=== PATIENT | male | born 1935 | race Caucasian/White ===

== ENCOUNTER 2017-08-09 12:05 | Inpatient (IN) | payer MEDICARE ==
[~2017-08-09] VITALS: Ht 180.3 cm; Wt 92.1 kg
--- NOTE | 2017-08-09 12:11 | NUR ---
81 YO MALE BB RA FROM HOME, PATIENT STATES HE WAS USING THE RESTROOM, WHEN HE HAD AN EPISODE OF LIGHHEADED, LEFT SIDED NUMBNESS AND VISION LOSS. PATIENT DS TO ER BED, SKIN WARM AND DRY, RESP EVEN AND UNLABORED. PATIENT WAS GOWNED,PLACED ON BAND MANAGER. PATIENT IS MOVING ALL EXTREMITIES FREELY, PMS ALL EXTREMITIES WNL, NO FACIAL DROOP NOTED AT THIS TIME. AWAITING ORDERS FROM PROVIDER, WILL CONITNUE TO MONITOR
[2017-08-09 12:29] LABS: BASOPHILS % (AUTO) 0.4 % (0.0-2.0); EOSINOPHILS % (AUTO) 3.8 % (0.0-6.0); HEMATOCRIT 37 % (39-51); HEMOGLOBIN 12.8 g/dL (13.5-17.5); LYMPHOCYTES # (AUTO) 1.7 /CMM (0.8-4.8); LYMPHOCYTES % (AUTO) 28.9 % (20.0-44.0); MEAN CORPUSCULAR HGB CONC 35 g/dl (31.0-36.0); MEAN CORPUSCULAR VOLUME 93 fL (80-96); MONOCYTES # (AUTO) 0.5 /CMM (0.1-1.30); NEUTROPHILS # (AUTO) 3.6 /CMM (1.8-8.9); NEUTROPHILS % (AUTO) 57.9 % (43.0-81.0); PLATELET COUNT (AUTO) 248 /CMM (150-450); RDW COEFFICIENT OF VARIATION 13.8 (11.5-15.0); RED BLOOD CELL COUNT(AUTO) 3.93 MIL/uL (4.5-6.0)
[2017-08-09 12:38] LABS: CALCIUM, SERUM 9.4 mg/dL (8.5-10.1); CARBON DIOXIDE 25 mmol/L (21-32); CHLORIDE 103 mmol/L (98-107); CREATININE 1.8 mg/dL (0.6-1.3); GLUCOSE 153 mg/dL (74-106); POTASSIUM 4.6 mmol/L (3.5-5.1); SODIUM SERUM 137 mmol/L (136-145); UREA NITROGEN, BLOOD 35 mg/dL (7-18)
[2017-08-09 12:42] LABS: INR 1.01 (0.85-1.15)
[2017-08-09 12:47] LABS: TROPONIN I < 0.017 ng/mL (0.00-0.056)
[2017-08-09] MEDS ORDERED: IOHEXOL-350 100 ML VIAL IV ONE (12:50)
[2017-08-09 13:02] LABS: CHOLESTEROL 134 mg/dL (<200); HDL CHOLESTEROL 122 mg/dL (40-60); LDL 81 mg/dL (0-99); TRIGLYCERIDES 272 mg/dL (30-150)
[2017-08-09] MEDS ORDERED: IV NS 0.9% 1,000 ML BAG IV ONE ×2 (13:30)
[2017-08-09] MEDS ORDERED: LOSA50TA21 PO (13:46)
[2017-08-09] MEDS ORDERED: GABA-534 PO (13:46)
[2017-08-09] MEDS ORDERED: METO-356 PO (13:46)
[2017-08-09] MEDS ORDERED: PANT40TA4 PO (13:46)
[2017-08-09] MEDS ORDERED: AMLO2.5T3 PO (13:46)
[2017-08-09] MEDS ORDERED: ALLO100T PO (13:46)
[2017-08-09] MEDS ORDERED: ASPIRIN 81 MG TAB.CHEW PO ONE ×2 (14:00→19:30)
--- NOTE | 2017-08-09 14:00 | NUR ---
PAGED EPIC FOR PANEL
--- NOTE | 2017-08-09 14:04 | NUR ---
report was given to maru VICTOR for jamir
--- NOTE | 2017-08-09 14:16 | NUR ---
PT TRANSFERRED TO [facility] IN STABLE CONDITION
--- NOTE | 2017-08-09 14:37 | NUR ---
SUPERVISOR TUNNEL HEADING NOTES RECEIVED PATIENT A/OX4 DENIES SOB, DIFFICULTY BREATHING OR PAIN. PATIENT AMBULATORY WITHOUT ASSISTANCE TO BED. PATIENT STATES HIS SYMPTOMS HE WAS PREVIOUSLY HAVING HAVE RESOLVED. LEFT SIDE OF FACE SLIGHTLY WEAK PER PATIENT THIS IS RESIDUAL FROM BELLS PALSY. PATIENT STATES NO COMPLICATIONS WITH VISION AT THIS TIME. SAFETY PRECAUTIONS IN PLACE. BED LOWERED AND LOCKED, RAILS UPX3 FOR SAFETY AND BED ALARM ON. DAUGHTER AT BEDSIDE. DR RASMUSSEN AWARE OF ADMISSION. TELE NSR 63
--- NOTE | 2017-08-09 14:40 | NUR ---
EVICTION SPECIALIST NOTES PATIENT EXTREMITIES WNL STRENGTH. BLE WITH DIABETIC NEUROPATHY LEFT GREATER THAN RIGHT ABLE TO FEEL TOUCH. PATIENT PULSES PRESENT ALL EXTREMITIES.
--- NOTE | 2017-08-09 14:45 | NUR ---
MUSHROOM FARMER NOTES STROKE PROTOCOL INITIATED AND FOLLOWED. PATIENT STABLE.
[2017-08-09] MEDS ORDERED: ASPIRIN 81 MG TAB.CHEW ONE (14:48)
[2017-08-09 14:53] VITALS: BP 144/83
[2017-08-09] MEDS: PANTOPRAZOLE 40 MG TABLET.DR PO SCH (15:00)
[2017-08-09] MEDS: ASPIRIN EC 325 MG TABLET.DR PO SCH (15:00)
[2017-08-09] MEDS ORDERED: ENALAPRILAT INJ (1.25 MG/ML) 1.25 MG/ML VIAL IV PRN (15:00)
[2017-08-09] MEDS ORDERED: DEXTROSE 50%-WATER 50 ML DISP.SYRIN IV PRN (15:00)
[2017-08-09] MEDS ORDERED: BLOOD SUGAR DIAGNOSTIC 1 EACH STRIP IN SCH (15:00)
--- NOTE | 2017-08-09 15:15 | NUR ---
FAMILY PRACTITIONER NOTES ASA 162 MG GIVEN BY JOSE VICTOR FROM ER. PER DR RASMUSSEN DO NOT GIVE 325MG ECOTRIN NOW; RESUME TOMORROW AM SCHEDULED.
[2017-08-09 15:24] LABS: THYROID STIMULATING HORMONE 1.655 uIU/mL (0.358-3.74)
[2017-08-09 15:25] LABS: ALBUMIN 3.7 g/dL (3.4-5.0); BILIRUBIN,DIRECT 0.1 mg/dL (0.0-0.2); BILIRUBIN,TOTAL 0.8 mg/dL (0.2-1.0); TOTAL PROTEIN, SERUM 7.9 g/dL (6.4-8.2)
--- NOTE | 2017-08-09 15:30 | NUR ---
AGENT PRODUCER NOTES PATIENT STATES HE IS A DNR/DNI PER MD OK TO ORDER CODE STATUS.
--- NOTE | 2017-08-09 15:33 | NUR ---
DIRECTOR OF RESTAURANTS NOTES DR RASMUSSEN AT BEDSIDE. PER MD ORDER MRI BRAIN WITHOUT AND MRA STAT
--- NOTE | 2017-08-09 15:39 | NUR ---
PCU RN NOTES CONFIRMED WITH RADIOLOGY MRI WILL BE DONE. PER MD ORDER DIABETIC DIET FOR PATIENT. NO SWALLOWING DIFFICULTIES
--- NOTE | 2017-08-09 15:44 | NUR ---
VEGETABLE WASHER NOTES PATIENT BEING TAKEN FOR MRI IN STABLE CONDITION BY WHEELCHAIR
[2017-08-09 16:00] VITALS: BP 144/83
--- NOTE | 2017-08-09 16:45 | NUR ---
ENVIRONMENTAL RESTORATION PLANNER NOTES PATIENT RETURNED FROM MRI STABLE. RAIL TRANSIT OPERATOR AT BEDSIDE
--- NOTE | 2017-08-09 16:50 | NUR ---
ORAL THERAPIST NOTES CAROTID BEING COMPLETED
[2017-08-09] MEDS ORDERED: GABAPENTIN 300 MG CAPSULE PO SCH (17:00)
--- NOTE | 2017-08-09 17:15 | NUR ---
COLD PATCHER NOTES DR POZO AT BEDSIDE
--- NOTE | 2017-08-09 18:00 | NUR ---
DECK MOLDER NOTES PATIENT STATES HE DOES NOT TAKE INSULIN
[2017-08-09] MEDS: BLOOD SUGAR DIAGNOSTIC 1 EACH STRIP IN SCH ×2 (18:22→22:04)
--- NOTE | 2017-08-09 18:32 | NUR ---
MANAGEMENT ARCHITECT NOTES PATIENT APPEARS STABLE. UPDATED ON CARE PLAN. EATING DINNER. PENDING MRI/MRA RESULTS. PATIENT NEEDS IN REACH. NO DEFICITS NOTED. AT BEDSIDE. NSR. PATIENT AWARE NEEDING URINE SAMPLE BUT HAS NOT URINATED YET. CARE WILL BE ENDORSED TO RN FOR JULIO
--- NOTE | 2017-08-09 18:49 | NUR ---
SR. DIRECTOR NOTES URINE SAMPLE COLLECTED
--- NOTE | 2017-08-09 18:55 | NUR ---
THIRD SHIFT LIEUTENANT NOTES NOTIFIED DR RASMUSSEN OF MRA RESULTS. NO NEW ORDERS. NOTIFIED PATIENT C/O GENERAL PAIN. PER OK TO ORDER TYLENOL ES PO 500MG Q6H PRN FOR PAIN
[2017-08-09] MEDS ORDERED: AMLODIPINE BESYLATE 2.5 MG TABLET PO SCH (19:00)
[2017-08-09] MEDS ORDERED: LOSARTAN POTASSIUM 50 MG TABLET PO SCH (19:00)
--- NOTE | 2017-08-09 19:06 | NUR ---
B2B SALES REPRESENTATIVE NOTES PER DR RASMUSSEN GIVE THE ORDERED BLOOD PRESSURE MEDICATIONS NOW. GIVE ANOTHER 162 MG ASPIRIN PO NOW. ORDER IVP HYDRALAZINE 20MG Q6H PRN FOR SBP OVER 130. AND CALL DR HOWARD ONCE MRI/MRA RESULTS ARE POSTED FOR ORDERS SHE IS EXPECTING A CALL
--- NOTE | 2017-08-09 19:07 | NUR ---
BASIN OPERATOR NOTES CARE ENDORSED TO RN FOR JULIO.
[2017-08-09 20:00] VITALS: BP 164/75
[2017-08-09 20:36] LABS: APPEARANCE,URINE SL CLOUDY (CLEAR); BILIRUBIN,URINE NEGATIVE (NEGATIVE); BLOOD, URINE NEGATIVE Ery/uL (NEGATIVE); COLOR,URINE YELLOW (YELLOW); KETONES,URINE NEGATIVE (NEGATIVE); LEUKOCYTE ESTERASE ,URINE NEGATIVE (NEGATIVE); NITRITE, URINE NEGATIVE (NEGATIVE); PROTEIN,URINE 1+ mg/dl (NEGATIVE); UGLUCOSE NEGATIVE (NEGATIVE); UROBILINOGEN,URINE 0.2 EU/dL (0.2)
[2017-08-09 20:51] LABS: BACTERIA,URINE None seen /HPF (None Seen); RBC,URINE 0-2 /HPF (0-2); SQUAMOUS EPITHELIAL CELL,UR Rare /HPF (None Seen); WBC,URINE 0-2 /HPF (0-3)
[2017-08-09] MEDS: GABAPENTIN 300 MG CAPSULE PO SCH (20:56)
[2017-08-09] MEDS: METOPROLOL SUCCINATE 25 MG TAB.SR.24H PO SCH (20:59)
--- NOTE | 2017-08-09 22:00 | NUR ---
SHEEP OR CALF GRADER - REC'D PT. IN RM#[id number] W/FAMILY AT BS. PT.IS ADMITTED FOR TIA, HX OF ANGELES'S PALSY W/LEFT EYE DROOP. STRONG BILAT.ADVERTISING REP & PEDAL PUSHES BILAT. SPEECH CLEAR. INITIAL B/P AT [facility] WAS 164/75. PT. WAS ADM. SEVERAL B'P MEDS AT 2100. PT. CLAIMS TO HAVE A HOOK (LEVEL 5). PT. WAS ADM. ASA W/21:[address] HOWARD PHONED AT 21:10 W/ MRI RESULTS. LEFT MESSAGE TO PHONE BACK. DID PHONE BACK AT 22:00-NO ORDERS REC'D YET. ORDERS TO PHONE DR. RASMUSSEN IF ANY NEURO OR PHYSICAL CHANGES OCCUR. PT.IS ON R/A, AFEBRILE, RAC-PIV IS HL'D W/2 PORTS PATENT TO FLUSH. SKIN INTACT. NO EDEMA. NO S/S OF DISTRESS/DISCOMFORT. CONT.POC.
[2017-08-09] MEDS: INSULIN REGULAR, HUMAN 100 UNIT/ML 3 ML VIAL SQ PRN (22:03)
[2017-08-09] MEDS: SIMVASTATIN 20 MG TABLET PO SCH (22:04)
[2017-08-09] MEDS: ACETAMINOPHEN ES 500 MG TABLET PO PRN (23:55)
[2017-08-09] MEDS: hydrALAZINE HCL IV 20 MG VIAL IV PRN (23:56)
[2017-08-10] VITALS (27 sets, daily range): BP systolic 114–164; BP diastolic 53–87
[2017-08-10] MEDS: BLOOD SUGAR DIAGNOSTIC 1 EACH STRIP IN SCH ×4 (06:00→23:30)
--- NOTE | 2017-08-10 06:50 | NUR ---
UTILIZATION REVIEW COORDINATOR - PT. SLEPT INTERMITTENTLY LAST NIGHT. BUT LIKE HIS ER ADM. PT.IS EXPERIENCING BLURRED VISION-MORE IN THE LEFT SIDE, THAN RT. ENDORSED TO DAYSHIFT RNIRWIN. NOTED. NO OTHER DEFICIT NOTED. PT. LAU'S WELL, TONGUE SYMMETRICAL, PT'S SMILE HAS SOME DROOP TO RT. SIDE MORE THAN LEFT SIDE/ LEFT EYE DROOP IS THE SAME INITIAL ASSESSMENT. PT.DOES HAVE HX OF ANGELES'S PALSY. AM BS AT #174. PT. COVERED W/REG. INSULIN/3U/SQ/LEFT DELTOID. PT. STILL HAS HOOK. 4AM B/P WAS 131/59. PT. WAS ADM. HYDRALAZINE 20MG/SLOW IVP AT [place]. PRN MED. A&OX 4. AFEBRILE. PT. IS REQUESTING BED BATH AFTER BREAKFAST. AM LABS PENDING. CONT. POC.
--- NOTE | 2017-08-10 07:40 | NUR ---
RN NOTES RECEIVED PATIENT ALERT AND ORIENTED X4. HE IS ABLE TO MAKE THINGS KNOWN. BREATHING EVEN AND UNLABORED WITH NO SOB OR DISTRESS NOTED. ON CARDIAC MONITORING SINUS RHYTHM HR OF 77. PATIENT IS AMBULATORY WITH ASSIST. PATIENT STATED HE WAS HAVING BLURRY VISION. LEFT SIDE OF FACE SLIGHTLY WEAK PER PATIENT STATED HE HAS HX OF BELLS PALSY. SEEN BY MD DR RASMUSSEN HE STATED TO MONITOR PATIENT SBP AND MAINTAIN SBP <120. SAFETY PRECAUTIONS IN PLACE. BED LOW, LOCKED, PLACED CALL LIGHT WITH IN REACH. AND DAUGHTER AT BEDSIDE. WILL CONTINUE TO MONITOR CONTINUITY OF CARE.
[2017-08-10 07:43] LABS: BASOPHILS % (AUTO) 0.2 % (0.0-2.0); EOSINOPHILS % (AUTO) 2.8 % (0.0-6.0); HEMATOCRIT 32 % (39-51); HEMOGLOBIN 11.4 g/dL (13.5-17.5); LYMPHOCYTES # (AUTO) 1.9 /CMM (0.8-4.8); LYMPHOCYTES % (AUTO) 27.9 % (20.0-44.0); MEAN CORPUSCULAR HGB CONC 35 g/dl (31.0-36.0); MEAN CORPUSCULAR VOLUME 94 fL (80-96); MONOCYTES # (AUTO) 0.7 /CMM (0.1-1.30); MONOCYTES % (AUTO) 9.9 % (2.0-12.0); NEUTROPHILS % (AUTO) 59.2 % (43.0-81.0); PLATELET COUNT (AUTO) 226 /CMM (150-450); RDW COEFFICIENT OF VARIATION 14.6 (11.5-15.0); RED BLOOD CELL COUNT(AUTO) 3.44 MIL/uL (4.5-6.0); WHITE BLOOD COUNT (AUTO) 6.8 K/uL (4.3-11.0)
[2017-08-10 07:52] LABS: CALCIUM, SERUM 8.8 mg/dL (8.5-10.1); CARBON DIOXIDE 24 mmol/L (21-32); CHLORIDE 104 mmol/L (98-107); GLUCOSE 171 mg/dL (74-106); POTASSIUM 4.2 mmol/L (3.5-5.1); SODIUM SERUM 138 mmol/L (136-145); UREA NITROGEN, BLOOD 31 mg/dL (7-18)
[2017-08-10 07:53] LABS: CHOLESTEROL 111 mg/dL (<200); HDL CHOLESTEROL 35 mg/dL (40-60); LDL 63 mg/dL (0-99); TRIGLYCERIDES 202 mg/dL (30-150)
[2017-08-10] MEDS: INSULIN REGULAR, HUMAN 100 UNIT/ML 3 ML VIAL SQ PRN ×4 (08:07→23:30)
[2017-08-10 08:11] LABS: INR 1.07 (0.87-1.13)
[2017-08-10] MEDS: METOPROLOL SUCCINATE 25 MG TAB.SR.24H PO SCH (08:44)
[2017-08-10] MEDS: AMLODIPINE BESYLATE 10 MG TABLET PO SCH (08:44)
[2017-08-10] MEDS: PANTOPRAZOLE 40 MG TABLET.DR PO SCH (08:44)
[2017-08-10] MEDS: ASPIRIN EC 325 MG TABLET.DR PO SCH (08:44)
[2017-08-10] MEDS: LOSARTAN POTASSIUM 50 MG TABLET PO SCH (08:45)
[2017-08-10] MEDS: GABAPENTIN 300 MG CAPSULE PO SCH ×2 (08:45→21:19)
--- NOTE | 2017-08-10 09:35 | NUR ---
RN NOTE SEEN BY DR HOWARD SHE STATED SHE WANTS PATIENT TO BE TRANSFERRED TO ICU FOR HIGHER LEVEL OF CARE.
--- NOTE | 2017-08-10 10:05 | NUR ---
RN NOTE PATIENT WAS TRANSFERRED TO ICU VIA BED. REPOT WAS GIVEN TO EXHIBIT TECHNICIAN JAREN
[2017-08-10] MEDS: ACETAMINOPHEN ES 500 MG TABLET PO PRN ×2 (10:56→16:04)
--- NOTE | 2017-08-10 12:55 | NUR ---
ELECTRICAL ENGINEERING DRAFTING OFFICER NOTE 1010: Received patient from [facility], A/Ox4 81 male. No c/o discomfort at this time. Room air, tolerated. No respiratory distress noted at this time. With RAC PIV intact. Noted with left side facial drooping for [place] palsy and haziness on the left eye per patient. Skin is intact, placed on the monitor, SR 60's. For close monitoring and neurocheck q2 per Dr. Flynn. 1250: No any significant changes noted at this time. Kept clean, warm and dry. Needs attended. Diet tolerated well. No new weakness noted. NIHSS done, result 0.
[2017-08-10] MEDS: hydrALAZINE HCL IV 20 MG VIAL IV PRN (14:36)
--- NOTE | 2017-08-10 18:22 | NUR ---
CAMPUS RECRUITING COORDINATOR NOTE No any significant changes noted at this time. VSS. No new complaints such as muscle weakness, disorientation, slurred speech, etc. Kept clean, warm and dry. Needs attended. Attempted to place another PIV but not successful, spoke with patient re: midline insertion.
[2017-08-10] MEDS: SIMVASTATIN 20 MG TABLET PO SCH (21:19)
--- NOTE | 2017-08-10 22:00 | NUR ---
CLAMSHELL OPERATOR - REC'D PT. IN RM#252, PT. WAS TRANSFERRED TO ICU THIS AM FROM [facility] PER DR. HOWARD. PT. HAS HX OF ANGELES"S PALSY W/LEFT EYE DROOP X 5 YRS. STRONG BILAT. HAND WAREHOUSE FOREMAN & PEDAL PUSHES. PT.IS A&O X 4, NO SLURRED SPEECH. TONGUE SYMM. ANDREA, NO NEURO DEFICIT NOTED. PT. HAS GOOD SUPPORT SYSTEM W/FAMILY & FRIENDS. ORDERS TO KEEP SBP'S IN THE 130-140'S. HR/NSR/80'S. PT. USES URINAL WELL. PT. INSISTS ON STANDING WHILE URINATING, ASKED PT. TO PLZ CALL RN TO BE AT BS WHILE HE STANDS. LAU'S WELL. PT. ON R/A W/O2 SATS WNL. LUNG SALAS ARE CLEAR TO AUSC. BAILEY GRANT PUT IN LUE MIDLINE W/ALL PORTS PATENT TO FLUSH. PIV TO LFA IS STILL PATENT TO FLUSH. ALL HL'D. AFEBRILE. PT. STATES HE HAS "ALITTLE HOOK", BUT IS CURRENTLY TURNING DOWN TYLENOL. NO EDEMA. PT'S SKIN IS INTACT. ALL PULSES PALPABLE X 4 EXT. CONT. POC.
[2017-08-10] MEDS ORDERED: ZOLPIDEM TARTRATE 5 MG TABLET PO PRN (22:30)
[2017-08-11] VITALS (48 sets, daily range): BP systolic 93–152; BP diastolic 55–100
[2017-08-11 04:43] LABS: BASOPHILS % (AUTO) 0.3 % (0.0-2.0); EOSINOPHILS % (AUTO) 3.3 % (0.0-6.0); HEMATOCRIT 33 % (39-51); HEMOGLOBIN 11.5 g/dL (13.5-17.5); LYMPHOCYTES # (AUTO) 2.2 /CMM (0.8-4.8); LYMPHOCYTES % (AUTO) 30.3 % (20.0-44.0); MEAN CORPUSCULAR HGB CONC 35 g/dl (31.0-36.0); MEAN CORPUSCULAR VOLUME 95 fL (80-96); MONOCYTES # (AUTO) 0.6 /CMM (0.1-1.30); NEUTROPHILS # (AUTO) 4.1 /CMM (1.8-8.9); NEUTROPHILS % (AUTO) 57.1 % (43.0-81.0); PLATELET COUNT (AUTO) 229 /CMM (150-450); RDW COEFFICIENT OF VARIATION 14.8 (11.5-15.0); RED BLOOD CELL COUNT(AUTO) 3.47 MIL/uL (4.5-6.0); WHITE BLOOD COUNT (AUTO) 7.2 K/uL (4.3-11.0)
[2017-08-11 05:16] LABS: CARBON DIOXIDE 24 mmol/L (21-32); CHLORIDE 102 mmol/L (98-107); CREATININE 2.2 mg/dL (0.6-1.3); GLUCOSE 172 mg/dL (74-106); MAGNESIUM 1.4 mg/dL (1.8-2.4); PHOSPHORUS 4.7 mg/dL (2.5-4.9); POTASSIUM 3.6 mmol/L (3.5-5.1); SODIUM SERUM 139 mmol/L (136-145); UREA NITROGEN, BLOOD 32 mg/dL (7-18)
--- NOTE | 2017-08-11 06:30 | NUR ---
MAINTENANCE SUPERVISOR ELECTRICAL - PT. SLEPT FOR MOST PART OF THE NIGHT W/O INCIDENCE. GOOD UOP FOR THIS SHIFT VIA URINAL. PT'S NEURO STATUS INTACT. NO CHANGES. PT'S CAME IN THIS MORNING AT 06:10AM. SHE INSISTED ON SEEING HIM BEFORE SHE WENT TO WORK. RN EXPLAINED HIPPA TIME RULES. BUT, NEEDED TO TALK & SHE TALKED FOR 30MINS. THEN SHE LEFT. MEANWHILE, PT. STATED HE HAS A HOOK (LEVEL 5) WITH ALITTLE NAUSEA. SBP'S STAYED IN THE 150'S FOR 15MIN. AT 6AM SO HYDRALAZINE 20MG IVP WAS ADM. PT'S PARAMETERS ARE 130-140. PT'S SBP'S RANGED IN THE 90'S TO 150'S. VERBAL REPORT ENDORSED TO JAREN VICTOR. CONT.POC.
[2017-08-11] MEDS: ACETAMINOPHEN ES 500 MG TABLET PO PRN ×3 (06:48→22:45)
[2017-08-11] MEDS: INSULIN REGULAR, HUMAN 100 UNIT/ML 3 ML VIAL SQ PRN ×5 (06:51→22:08)
[2017-08-11] MEDS ORDERED: DEXTROSE 50%-WATER 50 ML DISP.SYRIN IV PRN (08:00)
[2017-08-11] MEDS: LOSARTAN POTASSIUM 50 MG TABLET PO SCH (08:21)
[2017-08-11] MEDS: ASPIRIN EC 325 MG TABLET.DR PO SCH (08:21)
[2017-08-11] MEDS: GABAPENTIN 300 MG CAPSULE PO SCH ×2 (08:21→21:02)
[2017-08-11] MEDS: PANTOPRAZOLE 40 MG TABLET.DR PO SCH (08:21)
[2017-08-11] MEDS: BLOOD SUGAR DIAGNOSTIC 1 EACH STRIP IN SCH ×4 (08:22→22:08)
[2017-08-11] MEDS ORDERED: POTASSIUM CHLORIDE 20 MEQ POWDER PACKET PO ONE (08:30)
[2017-08-11] MEDS: Magnesium 1GM/D5W 100ML PREMIX 100 ML IV SCH ×2 (08:49→10:03)
[2017-08-11] MEDS: METOPROLOL SUCCINATE 25 MG TAB.SR.24H PO SCH ×2 (08:50→17:06)
[2017-08-11] MEDS: AMLODIPINE BESYLATE 10 MG TABLET PO SCH (10:03)
[2017-08-11] MEDS: ONDANSETRON HCL/PF 4 MG/2 ML VIAL IV PRN (10:35)
[2017-08-11] MEDS: ENOXAPARIN SODIUM 30 MG/0.3 ML DISP.SYRIN SQ SCH (11:17)
--- NOTE | 2017-08-11 18:31 | NUR ---
CELL EFFICIENCY SUPERVISOR NOTE 0720: Received patient awake, A/Ox4. NO respiratory distress noted. Tolerated room air. RAJEEV midline intact. VSS at this time. SR 60's on the monitor. Kept call light at reach. 0930: S/E by Dr. Arora, obtained order for Zofran for c/o nausea. 1030: S/E by Dr. Flynn, no new order at this time. With plan for MRA/MRI on Monday. Discussed with the patient re: the POC. 1630: Able to walk on the hallway with no any new c/o dizziness/lightheadedness/etc. 1830: No any significant changes noted. Kept clean, warm and dry. Needs attended. Kept call light at reach. Will continue to monitor.
--- NOTE | 2017-08-11 19:30 | NUR ---
ICU/RN RECEIVED PT SLEEPING BUT AROUSES EASILY,ORIENTED X4.OFFERS NO COMPLAINTS.
[2017-08-11] MEDS: SIMVASTATIN 20 MG TABLET PO SCH (22:29)
--- NOTE | 2017-08-11 22:45 | NUR ---
ICU/RN C/O HEADACHE AND NECK ACHE.MEDICATED W/ TYLENOL EXTRA STRENGTH.
[2017-08-12] VITALS (29 sets, daily range): BP systolic 87–160; BP diastolic 34–99
[2017-08-12] MEDS: hydrALAZINE HCL IV 20 MG VIAL IV PRN ×2 (00:09→22:28)
[2017-08-12] MEDS ORDERED: ASPIRIN/ACETAMINOPHEN/CAFFEINE 1 EACH TABLET PO PRN (00:30)
[2017-08-12] MEDS ORDERED: HYDROCODONE/APAP 10/325MG 1 EA TABLET PO PRN (00:30)
[2017-08-12] MEDS ORDERED: MORPHINE SULFATE INJ 2 MG/ML DISP.SYRIN IM PRN (01:00)
[2017-08-12] MEDS ORDERED: MORPHINE SULFATE INJ 2 MG/ML DISP.SYRIN IV STA (01:10)
--- NOTE | 2017-08-12 02:10 | NUR ---
ICU/RN BROUGHT DOWN TO CT SCANNER FOR CT OF HEAD PT DEVELOPED SEVERE HEADACHE AND NECK ACHE W/BLURRING OF VISION AFTER RECEIVING A TOTAL OF 4MG MORPHINE IVP ORDERED BY BAILEY GRANT
--- NOTE | 2017-08-12 02:30 | NUR ---
ICU/RN BACK FROM CT SCAN.OFFERS NO COMPLAINTS.SLEEPING.
[2017-08-12] MEDS: GABAPENTIN 300 MG CAPSULE PO SCH ×2 (07:45→21:00)
[2017-08-12] MEDS: LOSARTAN POTASSIUM 50 MG TABLET PO SCH (07:46)
[2017-08-12] MEDS: PANTOPRAZOLE 40 MG TABLET.DR PO SCH (07:46)
[2017-08-12] MEDS: ONDANSETRON HCL/PF 4 MG/2 ML VIAL IV PRN ×2 (07:46→18:43)
[2017-08-12] MEDS: METOPROLOL SUCCINATE 25 MG TAB.SR.24H PO SCH ×2 (07:46→17:30)
[2017-08-12] MEDS: AMLODIPINE BESYLATE 10 MG TABLET PO SCH (07:46)
[2017-08-12] MEDS: ASPIRIN EC 325 MG TABLET.DR PO SCH (07:57)
[2017-08-12] MEDS: INSULIN REGULAR, HUMAN 100 UNIT/ML 3 ML VIAL SQ PRN ×3 (07:57→18:43)
[2017-08-12] MEDS: BLOOD SUGAR DIAGNOSTIC 1 EACH STRIP IN SCH ×4 (07:58→22:13)
[2017-08-12] MEDS: ENOXAPARIN SODIUM 30 MG/0.3 ML DISP.SYRIN SQ SCH (07:58)
[2017-08-12] MEDS ORDERED: DEXTROSE 50%-WATER 50 ML DISP.SYRIN IV PRN (11:30)
[2017-08-12] MEDS ORDERED: *INSULIN REGULAR(HUMULIN R)HUM 100 UNIT/ML VIAL SQ PRN (11:30)
[2017-08-12] MEDS: hydrALAZINE HCL 25 MG TABLET PO SCH ×2 (12:12→17:30)
[2017-08-12] MEDS: ACETAMINOPHEN 325 MG TABLET PO SCH ×2 (12:15→17:30)
--- NOTE | 2017-08-12 12:42 | NUR ---
OPERATIONS ANALYST NOTE 0720: Received patient awake, A/Ox3. No respiratory distress noted, tolerated room air. No c/o discomfort at this time. SR 60's on the monitor. No S/S hypo/hyperglycemia noted at this time. 0800: With c/o nausea, Zofran given as ordered, am meds given as ordered. 1000: Patient able to walk in the unit, but when he got back to room, sat on the chair, noted with more confusion. 1130: S/E by Dr. Flynn, family at bedside, discussed with patient and family re: POC. With order for stat MRI, per Radio, will do [id number], MD and patient and family aware and verbalized understanding. DCd Morphine, patient with c/o drowsiness. 1100: S/E by Dr. Arora, with order for Hydralazine and Tylenol RTC carried out. Able to use BSC for voiding. 1230: SBP 140's, started on Hydralazine RTC.
--- NOTE | 2017-08-12 16:26 | NUR ---
ACADEMIC AFFAIRS MANAGER NOTE 1610: Patient back from MRI via wheelchair, in good condition, no any significant changes noted. VSS.
--- NOTE | 2017-08-12 19:20 | NUR ---
AUTOMAT CAR ATTENDANT NOTE Held insulin, patient did not eat.
--- NOTE | 2017-08-12 19:30 | NUR ---
ICU/RN RECEIVED REPORT FROM JAREN VICTOR AND RADHA RE:TRANSFER OF PT TO [facility] AND I WAS TOLD THAT [facility] NOT ACCEPTING PT.INFORMED FAMILY & PT. REGARDING ABOVE.PT IS AWAKE ALERT &ORIENTED X3.OFFERS NO COMPLAINTS.
--- NOTE | 2017-08-12 19:49 | NUR ---
PLASTIC TOOL MAKER NOTE Dr. Flynn spoke with family at bedside via phone, answered patient's questions. With order for stat MRA clarified with Radio. Dr. Arora informed CN to call telestroke, per tele stroke MD, Dr. Lozano, not indication for any TPA or procedure at this time secondary to unknown time for latest stroke happened. Informed Dr. Arora re: the convo, said to inform Dr. Flynn. Awaiting for radio, said 10pm for MRA, made family aware.
[2017-08-12 20:10] LABS: INR 1.05 (0.87-1.13)
--- NOTE | 2017-08-12 21:00 | NUR ---
ICU/RN PT TAKEN DOWN TO MRI FOR MRA HEAD AND NECK W/AND W/O CONTRAST.UNABLE TO DO IV CONTRAST CREATININE 2.2.
--- NOTE | 2017-08-12 21:40 | NUR ---
ICU/RN BACK TO ROOM.OFFERS NO COMPLAINTS.
[2017-08-12] MEDS: SIMVASTATIN 20 MG TABLET PO SCH (22:04)
[2017-08-13] VITALS (19 sets, daily range): BP systolic 88–138; BP diastolic 50–89
[2017-08-13] MEDS: ACETAMINOPHEN 325 MG TABLET PO SCH ×2 (00:10→04:54)
[2017-08-13] MEDS ORDERED: GABAPENTIN 300 MG CAPSULE PO ONE (01:00)
--- NOTE | 2017-08-13 01:45 | NUR ---
ICU/RN PRINTED RESULTS OF MRI HEAD & NECK SHOWED TO DR GRANT AND STATED THAT"WHY DON'T THEY TRANSFER THIS PT'?.IN RESPONSE TO THIS PER CONVERSATION TO OUT GOING RN AND COMPACTOR DRIVER, IS NOT ACCEPTING THIS PT.
--- NOTE | 2017-08-13 01:50 | NUR ---
ICU/RN ASSISTED OUT OF BED TO BEDSIDE COMMODE THEN BACK TO BED AFTER 10MIN.DENIES PAIN-NECK OR HEADACHE.FAMILY IN ROOM AND STAYING FOR THE NOC.
--- NOTE | 2017-08-13 04:54 | NUR ---
ICU/RN C/O OF HEADACHE LEFT FRONTAL 09/21.TYLENOL 650 MG GIVEN.PT SLEPT MOST OF THE NIGHT.NO NEURO DEFICITS NOTED.
[2017-08-13 05:15] LABS: CALCIUM, SERUM 8.7 mg/dL (8.5-10.1); CARBON DIOXIDE 24 mmol/L (21-32); CHLORIDE 101 mmol/L (98-107); CREATININE 1.7 mg/dL (0.6-1.3); GLUCOSE 184 mg/dL (74-106); POTASSIUM 4.2 mmol/L (3.5-5.1); SODIUM SERUM 136 mmol/L (136-145); UREA NITROGEN, BLOOD 31 mg/dL (7-18)
[2017-08-13] MEDS: hydrALAZINE HCL 25 MG TABLET PO SCH ×3 (06:00→12:00)
[2017-08-13] MEDS: BLOOD SUGAR DIAGNOSTIC 1 EACH STRIP IN SCH ×2 (08:21→11:39)
[2017-08-13] MEDS: INSULIN REGULAR, HUMAN 100 UNIT/ML 3 ML VIAL SQ PRN (08:23)
[2017-08-13] MEDS: GABAPENTIN 300 MG CAPSULE PO SCH (08:29)
[2017-08-13] MEDS: ENOXAPARIN SODIUM 30 MG/0.3 ML DISP.SYRIN SQ SCH (08:30)
[2017-08-13] MEDS: ASPIRIN EC 325 MG TABLET.DR PO SCH (08:31)
[2017-08-13] MEDS: METOPROLOL SUCCINATE 25 MG TAB.SR.24H PO SCH (08:33)
[2017-08-13] MEDS: PANTOPRAZOLE 40 MG TABLET.DR PO SCH (08:33)
[2017-08-13] MEDS: AMLODIPINE BESYLATE 10 MG TABLET PO SCH (08:34)
[2017-08-13] MEDS: LOSARTAN POTASSIUM 50 MG TABLET PO SCH (08:34)
[2017-08-13] MEDS: ACETAMINOPHEN ES 500 MG TABLET PO PRN (10:04)
[2017-08-13] MEDS: hydrALAZINE HCL IV 20 MG VIAL IV PRN (10:09)
[2017-08-13] MEDS ORDERED: IV 1/2NS 1000 ML 1,000 ML IV PRN (11:30)
[2017-08-13] MEDS ORDERED: ONDANSETRON 4 MG TAB.RAPDIS PO PRN (12:00)
--- NOTE | 2017-08-13 12:28 | NUR ---
Pt. in clinically stable condition situation at present. present at bedside recommends angiogram studies for further stroke evaluation. she recommends transfer [facility]. Family decided to leave to take patient home AMA. discussed risks and benefits of AMA .Family and patient verbalized understanding and want to proceed with AMA.Patient left the hospital at 12.20 pm .
--- NOTE | 2017-08-13 12:46 | NUR ---
CAPTAIN CANNERY TENDER 1130 CM WANDA CALLED UP ICU, I TALKED TO HER SHE SAID THAT CRITICAL TRANSFER IN [facility] HAS QUESTIONS ABOUT THE PATIENT. I CALLED UP CRITICAL CARE TRANSFER AND TOLD ABOUT THE STOKE OF THE PATIENT AND THE ONE I TALKED TO TOLD ME THAT ITS NOT AN CUTE STROKE SINCE THEIR UNIT IS FOR TPA PATIENTS ONLY AND PATIENT IS NOT A CANDIDATE FOR TPA. THE PERSON I TALKED WITH FROM CRITICAL CARE TRANSFER TOLD ME TO CALL UP HER LOCKSTITCH SLEEVE SETTER AND CONVEY THE CASE TO HER THAT THE PATIENT SHOULD BE TRANSFERRED IMMEDIATELY. I CALLED THE LOCKSTITCH SLEEVE SETTER IN [facility], HER NAME IS RUSTY. I TOLD HER THAT PATIENT NEEDED TO BE TRANSFERRED SINCE THE CASE IS A PROGRESSIVE STROKE WHAT DR. HOWARD TOLD ME. RUSTY SAID SHE WILL TRY TO ACCOMMODATE THE PATIENT AND WILL CHECK IF SHE CAN PLACE THE PATIENT IN ICU. I TOLD DR. HOWARD AND DR. RASMUSSEN ABOUT WHAT THE LOCKSTITCH SLEEVE SETTER FROM [facility] HAD TOLD ME. FOR THE [facility], SHE SAID CALLED UP ICU AND TOLD ME THAT SHE STILL LOOKING FOR MORE HOSPITAL THAT COULD TAKE THE PATIENT RIGHT AWAY. WHILE AWAITING FOR RUSTY'S CALL BACK, THE FAMILY DECIDED TO GO FOR AMA INSTEAD. RUSTY FROM [facility] CALLED BACK AND TOLD ME THAT THEIR RADIOLOGIST INTERVENTIONALIST IS ASKING WHAT IS THE MAIN REASON WHY TRANSFER SHOULD BE DONE RIGHT AWAY. I TOLD RUSTY THAT ITS PROGRESSIVE STROKE AND PATIENT NEEDS ANGIOGRAM AND STENTING WELL SINCE THE PATIENT CEREBRAL ARTERY DISSECTION WELL. I ALSO SPOKE WITH THE NURSE FOR DROP BOARD MAN, PIPPA VICTOR LAST NIGHT AND MORNING SHIFT, JAREN VICTOR REGARDING WHAT HAPPENED YESTERDAY.
== END 2017-08-13 12:20 | disposition left against medical advice (07) | DRG 64 ==
LOC: ER 12:07 → TELE1 14:25 → TELE-TD 19:12 → ICU 08-10 10:16
PROVIDERS: ADMIT Internal Medicine; ATTEND Internal Medicine
PROC: 05H633Z Insertion of Infusion Device into Left Subclavian Vein, Percutaneous Approach (ICD-10-PCS; principal; 2017-08-10)
DX: I63.9 Cerebral infarction, unspecified (principal); I77.74 Dissection of vertebral artery; N17.0 Acute kidney failure with tubular necrosis; I50.33 Acute on chronic diastolic (congestive) heart failure; I13.0 Hypertensive heart and chronic kidney disease with heart failure and stage 1 through stage 4 chronic kidney disease, or unspecified chronic kidney disease; E11.22 Type 2 diabetes mellitus with diabetic chronic kidney disease; G51.0 Bell's palsy; I16.0 Hypertensive urgency; N18.9 Chronic kidney disease, unspecified; Z79.899 Other long term (current) drug therapy; I65.02 Occlusion and stenosis of left vertebral artery; Z66 Do not resuscitate; R26.9 Unspecified abnormalities of gait and mobility; E83.42 Hypomagnesemia; E78.5 Hyperlipidemia, unspecified; I11.0 Hypertensive heart disease with heart failure
CPT/HCPCS: 36415; 70450-TC; 70496-TC; 70498-TC; 70544-TC; 70547-TC; 70551-TC; 71045-TC; 80048-TC; 80061-TC; 80076-TC; 80305; 81000-TC; 82962-TC; 83735-TC; 83880; 84100-TC; 84443-TC; 84484-TC; 85025-TC; 85652-TC; 85730-TC; 86850-TC; 87081-TC; 92611-TC; 93307-TC; 93880-TC; A4606; J0360; J1650; J1815; J2270; J2405; J3475; Q9967; Z7610